=== PATIENT | female | born 1985 | race Caucasian/White ===

== ENCOUNTER 2021-09-20 04:20 | Day surgery (SDC) | payer BC, OTHER ==
[2021-09-16 11:52] VITALS: BMI 24.0
[2021-09-20] MEDS ORDERED: IBUPROFEN 400 MG TABLET (FP) PO PRN (06:56)
[2021-09-20] MEDS ORDERED: ACETAMINOPHEN 325 MG TABLET (FP) PO PRN (06:56)
[2021-09-20] MEDS ORDERED: SUCCINYLCHOLINE CHLORIDE 200 MG/10 ML SYRINGE ONE (07:04)
[2021-09-20] MEDS ORDERED: MIDAZOLAM HCL 2 MG/2 ML SINGLE DOSE VIAL ONE (07:04)
[2021-09-20] MEDS ORDERED: LIDOCAINE HCL/PF 2% SDV 5ML VIAL ONE (07:04)
[2021-09-20] MEDS ORDERED: PROPOFOL 20 ML ONE (07:04)
[2021-09-20] MEDS ORDERED: DEXAMETHASONE SOD PHOSPHATE 4 MG/1 ML VIAL ONE (07:04)
[2021-09-20] MEDS ORDERED: KETOROLAC TROMETHAMINE 30 MG/1 ML VIAL ONE (08:18)
[2021-09-20] MEDS ORDERED: ONDANSETRON 4 MG/2 ML VIAL IVPUSH PRN (09:08)
[2021-09-20] MEDS ORDERED: oxyCODONE HCL 5 MG TABLET PO PRN ×2 (09:08)
[2021-09-20] MEDS ORDERED: LACTATED RINGERS SOLUTION 1,000 ML IV SCH (09:15)
[2021-09-20] MEDS ORDERED: oxyCODONE HCL 5 MG TABLET ONE (10:49)
[2021-09-20 11:36] VITALS: BP 157/98; PULSE 83; TEMP 98.8
== END 2021-09-20 11:15 | disposition home or self-care (01) ==
LOC: JASU-SURG 04:20
PROVIDERS: ATTEND Obstetrics & Gynecology
PROC: 0UDB8ZX Extraction of Endometrium, Via Natural or Artificial Opening Endoscopic, Diagnostic (ICD-10-PCS; 2021-09-20)
PROC: 0UB98ZZ Excision of Uterus, Via Natural or Artificial Opening Endoscopic (ICD-10-PCS; principal; 2021-09-20 07:30)
PROC: 0UB98ZX Excision of Uterus, Via Natural or Artificial Opening Endoscopic, Diagnostic (ICD-10-PCS; 2021-09-20 07:30)
DX: D25.0 Submucous leiomyoma of uterus (principal); N84.0 Polyp of corpus uteri; N92.0 Excessive and frequent menstruation with regular cycle
CPT/HCPCS: 81025; 88305-TC; 94760

== ENCOUNTER 2023-12-21 04:43 | Day surgery (SDC) | payer BC, OTHER ==
[2023-12-19 12:36] VITALS: BMI 21.6
[2023-12-21] MEDS ORDERED: PROPOFOL 20 ML ONE (09:16)
[2023-12-21] MEDS ORDERED: MIDAZOLAM HCL 2 MG/2 ML SINGLE DOSE VIAL ONE ×3 (09:16→10:28)
[2023-12-21] MEDS ORDERED: ONDANSETRON 4 MG/2 ML VIAL ONE (09:57)
[2023-12-21] MEDS ORDERED: DEXAMETHASONE SOD PHOSPHATE 4 MG/1 ML VIAL ONE (09:57)
[2023-12-21] MEDS ORDERED: LIDOCAINE HCL/PF 2% SDV 5ML VIAL ONE (09:57)
[2023-12-21] MEDS ORDERED: ACETAMINOPHEN 325 MG TABLET (FP) PO PRN (10:12)
[2023-12-21] MEDS ORDERED: IBUPROFEN 400 MG TABLET (FP) PO PRN (10:12)
[2023-12-21] MEDS ORDERED: KETOROLAC TROMETHAMINE 30 MG/1 ML VIAL ONE (11:03)
[2023-12-21] MEDS ORDERED: ONDANSETRON 4 MG/2 ML VIAL IVPUSH PRN (11:44)
[2023-12-21] MEDS ORDERED: LACTATED RINGERS SOLUTION 1,000 ML IV SCH (11:45)
[2023-12-21 12:07] VITALS: RESP 16
[2023-12-21] MEDS ORDERED: oxyCODONE HCL 5 MG TABLET ONE (13:31)
[2023-12-21] MEDS: oxyCODONE HCL 5 MG TABLET PO PRN (13:32)
[2023-12-21] MEDS ORDERED: LABETALOL HCL 20 MG/4 ML VIAL ONE (14:42)
[2023-12-21] MEDS: LABETALOL HCL 20 MG/4 ML VIAL IVPUSH ONE (14:47)
[2023-12-21 15:39] VITALS: BP 150/90; PULSE 80; TEMP 98
== END 2023-12-21 15:40 | disposition home or self-care (01) ==
LOC: JASU-SURG 04:43
PROVIDERS: ATTEND Obstetrics & Gynecology
PROC: 0UB98ZZ Excision of Uterus, Via Natural or Artificial Opening Endoscopic (ICD-10-PCS; principal; 2023-12-21 10:00)
DX: D25.0 Submucous leiomyoma of uterus (principal); N85.6 Intrauterine synechiae
CPT/HCPCS: 81025; 88305-TC; 94760